=== PATIENT | male | born 1960 | race Caucasian/White ===

== ENCOUNTER 2018-04-28 01:42 | Emergency (ER) | payer MEDICARE ==
[2018-04-28] MEDS ORDERED: Sodium Chloride 0.9% 2.5 ML Syringe FLUSH PRN (02:03)
[2018-04-28] MEDS ORDERED: Sodium Chloride 0.9% 10 ML Syringe FLUSH PRN (02:03)
[2018-04-28] MEDS ORDERED: Insulin Regular, Human 100 Units/ML 10 ML Vial SUBCUT ONE (02:04)
[2018-04-28] MEDS ORDERED: Sodium Chloride 0.9% 1,000 ML IV ONE ×2 (02:04→02:57)
--- NOTE | 2018-04-28 02:07 | EDM.PDOC ---
ED HPI GENERAL MEDICAL PROBLEM - General Chief Complaint: General Stated Complaint: BLOOD SUGAR LEVELS Time Seen by Provider: 04/28/18 01:56 - History of Present Illness INITIAL COMMENTS - FREE TEXT/NARRATIVE: HISTORY AND PHYSICAL: History of present illness: The patient is a 58-year-old male with a long-standing history of insulin requiring diabetes since he was in his 20s and who follows with a doctor in [place] and presents with police for medical clearance because he was arrested for driving on a suspended license. The patient says that his blood sugars been running high and he was going to come in to be seen for this when he was pulled over and arrested. The patient says that he normally takes Lantus 30 units every morning and there is no evening dose and he uses sliding scale throughout the day of regular insulin. He says over the last few weeks he has been using more of the sliding scale but did not get into his provider to have his meds adjusted. He says he ran out of his Lantus 2 days ago which is why he thinks his sugar has jumped up so dramatically. He says he has been eating and drinking and has no chest pain shortness of breath nausea vomiting diarrhea polyuria or polydipsia and he says he doesn't hydrate very well and mostly drinks soda pop. He complains of no systemic issues currently and has no pain. He says he just feels very dehydrated. He has no urinary complaints Review of systems: As per history of present illness and below otherwise all systems reviewed and negative. Past medical history: As per history of present illness and as reviewed below otherwise noncontributory. Surgical history: As per history of present illness and as reviewed below otherwise noncontributory. Social history: No reported history of drug or alcohol abuse. Family history: As per history of present illness and as reviewed below otherwise noncontributory. Physical exam: General: Well-developed well-nourished thin man is nontoxic and vital signs are noted by me. I do not smell an odor of ketones on his breath HEENT: Atraumatic, normocephalic, negative for conjunctival pallor or scleral icterus, mucous membranes dry, throat clear, neck supple, nontender, trachea midline. Lungs: Clear to auscultation, breath sounds equal bilaterally, chest nontender. Heart: S1S2, regular rate and rhythm no overt murmurs Abdomen: Soft, nondistended, nontender. Negative for masses or hepatosplenomegaly. NABS Pelvis: Stable nontender. Genitourinary: Deferred. Rectal: Deferred. Extremities: Atraumatic, negative for cords or calf pain. Neurovascular unremarkable. Neuro: Awake, alert, oriented. Cranial nerves II through XII unremarkable. Cerebellum unremarkable. Motor and sensory unremarkable throughout. Exam nonfocal. Diagnostics: EKG CBC CMP serum ketones UA hemoglobin A1c Therapeutics: IV fluids insulin History and results were discussed with the patient and his repeat Accu-Chek after the subcutaneous insulin and partial IV fluid hydration is now 384. He is not in DKA and he is aware of this and he has not produced a urine so I will cancel that test as his serum ketones are negative. I will write him a prescription for the Lantus 30 units every morning that he can refill that until he can see his provider and according to the please of the circumflex bedside he will likely be discharged by the morning. I've also advised the patient to watch his diet and to continue with the sliding scale and reasons to return to the ED Impression: Hyperglycemia, medication refill, medical screening exam Definitive disposition and diagnosis as appropriate pending reevaluation and review of above. - Related Data Allergies Allergy/AdvReac Type Severity Reaction Status Date / Time No Known Allergies Allergy Verified 04/28/18 01:53 Home Meds: Home Meds Insulin Glarg,Human.Rec.Analog [Lantus] 0 unit SUBCUT DAILY 04/28/18 [History] Insulin Regular, Human [Novolin R] 30 units SQ DAILY 04/28/18 [History] Unknown Other Meds 04/28/18 [History] Past Medical History Gastrointestinal History: Reports: Cirrhosis Genitourinary History: Reports: Other (See Below) Other Genitourinary History: kidney disease Endocrine/Metabolic History: Reports: Diabetes, Type II Social & Family History - Tobacco Use Smoking Status *Q: Never Smoker ED ROS GENERAL - Review of Systems Review Of Systems: ROS reveals no pertinent complaints other than HPI. ED EXAM, GENERAL - Physical Exam Exam: See Below (See dictation) Course - Vital Signs Last Recorded V/S: Last Vital Signs Temp 36.6 C 04/28/18 01:57 Pulse 94 04/28/18 01:57 Resp 18 04/28/18 01:57 BP 146/78 H 04/28/18 01:57 Pulse Ox 98 04/28/18 01:57 - Orders/Labs/Meds Orders: Active Orders 24 hr Category Date Time Status Blood Glucose Check, Bedside [RC] ONETIME Care 04/28/18 02:03 Active EKG Documentation Completion [RC] STAT Care 04/28/18 02:03 Active UA W/MICROSCOPIC [URIN] Stat Lab 04/28/18 02:03 Ordered Sodium Chloride 0.9% [Normal Saline] 1,000 ml Med 04/28/18 02:57 Active IV STAT Sodium Chloride 0.9% [Saline Flush] Med 04/28/18 02:03 Active 10 ml FLUSH ASDIRECTED PRN Sodium Chloride 0.9% [Saline Flush] Med 04/28/18 02:03 Active 2.5 ml FLUSH ASDIRECTED PRN Saline Lock Insert [OM.PC] Stat Oth 04/28/18 02:02 Ordered Medication Orders Sodium Chloride (Normal Saline) 1,000 mls @ 999 mls/hr IV STAT ONE Stop: 04/28/18 03:57 Last Admin: 04/28/18 03:10 Dose: 999 mls/hr Sodium Chloride (Saline Flush) 10 ml FLUSH ASDIRECTED PRN PRN Reason: Keep Vein Open Sodium Chloride (Saline Flush) 2.5 ml FLUSH ASDIRECTED PRN PRN Reason: Keep Vein Open Labs: Laboratory Tests 04/28/18 04/28/18 04/28/18 Range/Units 02:20 02:20 02:20 WBC 3.28 L (4.0-11.0) K/uL RBC 4.22 L (4.50-5.90) M/uL Hgb 14.0 (13.0-17.0) g/dL Hct 38.8 (38.0-50.0) % MCV 91.9 (80.0-98.0) fL MCH 33.2 H (27.0-32.0) pg MCHC 36.1 (31.0-37.0) g/dL RDW Std Deviation 41.9 (28.0-62.0) fl RDW Coeff of Siobhan 13 (11.0-15.0) % Plt Count 50 L (150-400) K/uL MPV 11.50 (7.40-12.00) fL Neut % (Auto) 66.5 (48.0-80.0) % Lymph % (Auto) 18.9 (16.0-40.0) % Posey % (Auto) 11.6 (0.0-15.0) % Eos % (Auto) 2.7 (0.0-7.0) % Baso % (Auto) 0.3 (0.0-1.5) % Neut # (Auto) 2.2 (1.4-5.7) K/uL Lymph # (Auto) 0.6 (0.6-2.4) K/uL Posey # (Auto) 0.4 (0.0-0.8) K/uL Eos # (Auto) 0.1 (0.0-0.7) K/uL Baso # (Auto) 0.0 (0.0-0.1) K/uL Sodium 133 L (136-148) mmol/L Potassium 3.8 (3.5-5.1) mmol/L Chloride 101 (98-107) mmol/L Carbon Dioxide 25.4 (21.0-32.0) mmol/L BUN 6 L (7.0-18.0) mg/dL Creatinine 1.0 (0.8-1.3) mg/dL Est Cr Clr Drug Dosing 85.17 mL/min Estimated GFR (MDRD) > 60.0 ml/min Glucose 450 H (74-106) mg/dL POC Glucose (60-110) mg/dL Hemoglobin A1c (4.5-6.2) % Calcium 8.3 L (8.5-10.1) mg/dL Total Bilirubin 1.3 H (0.2-1.0) mg/dL AST 49 H (15-37) IU/L ALT 57 (14-63) IU/L Alkaline Phosphatase 149 H (46-116) U/L Total Protein 7.0 (6.4-8.2) g/dL Albumin 2.8 L (3.4-5.0) g/dL Globulin 4.2 H (2.0-3.5) g/dL Albumin/Globulin Ratio 0.7 L (1.3-2.8) Ketones NEGATIVE (NEG) 04/28/18 04/28/18 Range/Units 02:20 02:44 WBC (4.0-11.0) K/uL RBC (4.50-5.90) M/uL Hgb (13.0-17.0) g/dL Hct (38.0-50.0) % MCV (80.0-98.0) fL MCH (27.0-32.0) pg MCHC (31.0-37.0) g/dL RDW Std Deviation (28.0-62.0) fl RDW Coeff of Siobhan (11.0-15.0) % Plt Count (150-400) K/uL MPV (7.40-12.00) fL Neut % (Auto) (48.0-80.0) % Lymph % (Auto) (16.0-40.0) % Posey % (Auto) (0.0-15.0) % Eos % (Auto) (0.0-7.0) % Baso % (Auto) (0.0-1.5) % Neut # (Auto) (1.4-5.7) K/uL Lymph # (Auto) (0.6-2.4) K/uL Posey # (Auto) (0.0-0.8) K/uL Eos # (Auto) (0.0-0.7) K/uL Baso # (Auto) (0.0-0.1) K/uL Sodium (136-148) mmol/L Potassium (3.5-5.1) mmol/L Chloride (98-107) mmol/L Carbon Dioxide (21.0-32.0) mmol/L BUN (7.0-18.0) mg/dL Creatinine (0.8-1.3) mg/dL Est Cr Clr Drug Dosing mL/min Estimated GFR (MDRD) ml/min Glucose (74-106) mg/dL POC Glucose 417 H (60-110) mg/dL Hemoglobin A1c 8.6 H (4.5-6.2) % Calcium (8.5-10.1) mg/dL Total Bilirubin (0.2-1.0) mg/dL AST (15-37) IU/L ALT (14-63) IU/L Alkaline Phosphatase (46-116) U/L Total Protein (6.4-8.2) g/dL Albumin (3.4-5.0) g/dL Globulin (2.0-3.5) g/dL Albumin/Globulin Ratio (1.3-2.8) Ketones (NEG) Meds: Medications Generic Name Dose Route Start Last Admin Trade Name Freq PRN Reason Stop Dose Admin Sodium Chloride 1,000 mls @ 999 mls/hr 04/28/18 02:57 04/28/18 03:10 Normal Saline IV 04/28/18 03:57 999 mls/hr STAT ONE Administration Sodium Chloride 10 ml 04/28/18 02:03 Saline Flush FLUSH ASDIRECTED PRN Keep Vein Open Sodium Chloride 2.5 ml 04/28/18 02:03 Saline Flush FLUSH ASDIRECTED PRN Keep Vein Open Discontinued Medications Generic Name Dose Route Start Last Admin Trade Name Freq PRN Reason Stop Dose Admin Sodium Chloride 1,000 mls @ 999 mls/hr 04/28/18 02:04 04/28/18 02:36 Normal Saline IV 04/28/18 03:04 999 mls/hr STAT ONE Administration Insulin Human Regular 15 unit 04/28/18 02:04 04/28/18 02:30 Novolin R SUBCUT 04/28/18 02:05 15 units ONETIME ONE Administration Protocol Departure - Departure Time of Disposition: 03:17 Disposition: Home, Self-Care 01 Condition: Good Clinical Impression: Hyperglycemia, Encounter for medical screening examination, Encounter for medication refill - Discharge Information Referrals: PCP,None [Primary Care Provider] - Forms: ED Department Discharge Additional Instructions: The following information is given to patients seen in the emergency department who are being discharged to home. This information is to outline your options for follow-up care. We provide all patients seen in our emergency department with a follow-up referral. The need for follow-up, as well as the timing and circumstances, are variable depending upon the specifics of your emergency department visit. If you don't have a primary care physician on staff, we will provide you with a referral. We always advise you to contact your personal physician following an emergency department visit to inform them of the circumstance of the visit and for follow-up with them and/or the need for any referrals to a consulting specialist. The emergency department will also refer you to a specialist when appropriate. This referral assures that you have the opportunity for followup care with a specialist. All of these measure are taken in an effort to provide you with optimal care, which includes your followup. Under all circumstances we always encourage you to contact your private physician who remains a resource for coordinating your care. When calling for followup care, please make the office aware that this follow-up is from your recent emergency room visit. If for any reason you are refused follow-up, please contact the [facility] emergency department at and ask to speak to the emergency department charge nurse. [facility] Primary care- Internal Medicine and Family [address] [address] Please contact your provider at home or one of our providers in the clinic to schedule follow-up to have your medications adjusted and refilled. Please watch your diet and continue taking her Lantus in the morning as prescribed and using sliding scale throughout the day. Return to ER as needed and as discussed - My Orders Last 24 Hours: My Active Orders 04/28/18 02:02 Saline Lock Insert [OM.PC] Stat 04/28/18 02:03 Blood Glucose Check, Bedside [RC] ONETIME EKG Documentation Completion [RC] STAT UA W/MICROSCOPIC [URIN] Stat Sodium Chloride 0.9% [Saline Flush] 10 ml FLUSH ASDIRECTED PRN Sodium Chloride 0.9% [Saline Flush] 2.5 ml FLUSH ASDIRECTED PRN 04/28/18 02:57 Sodium Chloride 0.9% [Normal Saline] 1,000 ml IV STAT - Assessment/Plan Last 24 Hours: My Active Orders 04/28/18 02:02 Saline Lock Insert [OM.PC] Stat 04/28/18 02:03 Blood Glucose Check, Bedside [RC] ONETIME EKG Documentation Completion [RC] STAT UA W/MICROSCOPIC [URIN] Stat Sodium Chloride 0.9% [Saline Flush] 10 ml FLUSH ASDIRECTED PRN Sodium Chloride 0.9% [Saline Flush] 2.5 ml FLUSH ASDIRECTED PRN 04/28/18 02:57 Sodium Chloride 0.9% [Normal Saline] 1,000 ml IV STAT
[2018-04-28 02:50] LABS: CHLORIDE,CL 101 mmol/L (98-107); SODIUM,NA 133 mmol/L (136-148)
== END 2018-04-28 03:45 ==
LOC: MW.ED 01:42
DX: E11.65 Type 2 diabetes mellitus with hyperglycemia (principal); Z76.0 Encounter for issue of repeat prescription; Z79.4 Long term (current) use of insulin
CPT/HCPCS: 36415; 80053; 82009; 82962; 83036; 85025; 93005; 96360; 99283; J7040; J1815-GY

== ENCOUNTER 2018-11-21 19:10 | Emergency (ER) | payer MEDICARE, MEDICAID ==
[2018-11-21] MEDS ORDERED: HYDROmorphone 1 MG/ML Syringe IVPUSH ONE ×2 (19:34→20:50)
[2018-11-21] MEDS ORDERED: Sodium Chloride 0.9% 10 ML Syringe FLUSH PRN (19:34)
[2018-11-21] MEDS ORDERED: Sodium Chloride 0.9% 2.5 ML Syringe FLUSH PRN (19:34)
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
[2018-11-21] MEDS ORDERED: Sodium Chloride 0.9% 1,000 ML IV SCH (19:45)
[2018-11-21 20:01] LABS: CHLORIDE,CL 100 mmol/L (98-107); SODIUM,NA 135 mmol/L (136-148)
--- NOTE | 2018-11-21 20:10 | CR ---
INDICATION: TECHNIQUE: Chest 1 view COMPARISON: None FINDINGS: Cardiovascular and mediastinum: Heart size and vasculature are normal in caliber and appearance. Lungs and pleural spaces: Lungs are clear. No sign of infiltrate or mass. No sign of pleural effusion. No pneumothorax. Vascular crowding is suspected in the infrahilar regions bilaterally. Bones and soft tissues: No significant findings. IMPRESSION: No acute or significant findings. Dictated by Jaycob Garcia MD @ Nov 21 2018 8:07PM Signed by Dr. Jaycob Garcia @ Nov 21 2018 8:08PM
--- NOTE | 2018-11-21 20:19 | CR ---
INDICATION: Pain. FINDINGS: Two views of the right tibia and fibula were obtained. There are mildly displaced spiral fracture in the distal shaft of the tibia and fibula. There is no other fracture seen or dislocation. There is a screw in the proximal tibia. IMPRESSION: Mildly displaced spiral fracture distal shaft of the tibia and fibula. Dictated by Eyad Lanza MD @ 11/21/2018 8:16:40 PM Dictated by: Eyad Lanza MD @ 11/21/2018 20:16:55 (Electronically Signed)
[2018-11-21] MEDS ORDERED: Lactulose Soln 10 GM/15 ML 15 ML UD Cup PO ONE (20:20)
[2018-11-21] MEDS ORDERED: HYDROmorphone 1 MG/ML Syringe ONE (20:49)
[2018-11-21] MEDS ORDERED: HYDROmorphone 2 MG/ML Syringe IVPUSH ONE (20:50)
== END 2018-11-21 21:50 ==
LOC: MW.ED 19:10
DX: S82.301A Unspecified fracture of lower end of right tibia, initial encounter for closed fracture (principal); S82.831A Other fracture of upper and lower end of right fibula, initial encounter for closed fracture; N18.9 Chronic kidney disease, unspecified; K76.9 Liver disease, unspecified; E11.9 Type 2 diabetes mellitus without complications; F17.210 Nicotine dependence, cigarettes, uncomplicated; Z79.899 Other long term (current) drug therapy; V02.99XA Pedestrian with other conveyance injured in collision with two- or three-wheeled motor vehicle, unspecified whether traffic or nontraffic accident, initial encounter
CPT/HCPCS: 36415; 71045; 73590; 80053; 81003; 82140; 85025; 85610; 96361; 96374; 96376; 99285; A9270; J1170; J7040; 99284